=== PATIENT | female | born 1940 | race Caucasian/White ===

== ENCOUNTER 2016-05-10 12:36 | Emergency (ER) | payer OTHER ==
[2016-05-10 14:07] VITALS: BP 162/76
--- NOTE | 2016-05-10 15:08 | UC ---
Delfina Tang Rebecca, scribed for Belem Alberto MD on 05/10/16 at 1413 . Head Injury HPI - HPI Summary HPI Summary: Pt is a 75 y/o F who presents to [facility] c/o pain s/p head trauma and fall. Pt was walking into [facility] this am approx 10:50am when the doors closed on her and she fell backwards. Pt reports hitting the back of her head on the ground. Pain is discrete to the region that hit the ground. Sx began immediately and is currently mild, ranked 2/10 and characterized as dull. Additionally c/o mild neck stiffness. Denies LOC, confusion. reports being incapable of reporting her phone number immediately after episode. Pt takes 81 mg ASA, Zoloft and Lipitor every day. PMHx: anxiety, dyslipidemia PSHx bilateral hip replacements. PCP is Dr. Pratibha Lopez. Prior head and neck injuries/falls due to equitation. Pt brought a note from [facility], copied in her chart, timed 10:50 that describes the incident, states patient was "dizzy, shook up, stiff neck" Entired note reviewed prior to patient's departure. Triage nurse states that the note and pt 's history of fall was not presented prior to full triage. - History Of Current Complaint Chief Complaint: UCHeadInjury Stated Complaint: HEAD INJURY Time Seen by Provider: 05/10/16 14:00 Hx Obtained From: Patient, Family/Plumber - Onset/Duration: Sudden Onset, Lasting Hours, Still Present Severity Currently: None Severity Initially: Mild Pain Intensity: 2 Pain Scale Used: 0-10 Numeric Character: Dull Aggravating Factor(s): Nothing Alleviating Factor(s): Nothing Associated Signs And Symptoms: Positive: Memory Loss - pt denies, but states [facility] personnel reported that pt couldn't recite her phone number after the fall. Pt denies this, states "they didn't ask me for this"., Neck Pain - stiffness. Negative: LOC (Time In Secs./Mins/Hrs), LOC Duration Unknown, Confusion, Nausea, Vomiting Anticoagulant Therapy: ASA - 81 mg daily - Risk Factors SDH Risk Factor: Anticoagulent Use - ASA, Elderly Risk Factors For Cervical Spine Injury: Posterior Midline Cervical Spine Tenderness - Allergies/Home Medications Allergies/Adverse Reactions: Allergies Allergy/AdvReac Type Severity Reaction Status Date / Time Penicillins Allergy Unknown Unknown Verified 05/10/16 13:52 Reaction Details Home Medications: Home Medications Aspirin [Aspirin Adult Low Dose] 05/10/16 [History] Atorvastatin* [Lipitor 10 MG*] 05/10/16 [History] Ibuprofen TAB* [Advil TAB*] 05/10/16 [History] NK [No Home Medications Reported] 05/10/16 [History Confirmed 05/10/16] Sertraline* [Zoloft*] 1 tab PO DAILY 05/10/16 [History Confirmed 05/10/16] PMH/Surg Hx/FS Hx/Imm Hx Endocrine History Of: Reports: Dyslipidemia GI/ History Of: Denies: Ulcer Psychological History Of: Reports: Anxiety Cancer History Of: Denies: Breast Cancer - Surgical History Surgical History: Yes Surgery Procedure, Year, and Place: BILATERAL HIP REPLACEMENT - Family History Known Family History: Positive: Other - tongue CA (mother), brain tumor (father) - Social History Lives: With Family Alcohol Use: Daily Substance Use Type: None Smoking Status (MU): Never Smoked Tobacco Review of Systems Musculoskeletal: Arthralgia - Mild neck stiffness Neurological: Headache - s/p fall, Other - Denies LOC, confusion All Other Systems Reviewed And Are Negative: Yes Physical Exam Triage Information Reviewed: Yes Appearance: No Pain Distress, Well-Nourished, Ill-Appearing - mild, Signs of Trauma - Palpable 2cm hematoma post occiput, abrasion Vital Signs: Initial Vital Signs Temp 98.8 F 05/10/16 13:54 Pulse 72 05/10/16 13:54 Resp 16 05/10/16 13:54 BP 162/76 05/10/16 13:54 Pulse Ox 99 05/10/16 13:54 Vital Signs Reviewed: Yes Eyes: Positive: Conjunctiva Clear, Other: - PERRL EOMI ENT: Positive: TMs normal - No hemotympanum, Other: - No Scherer's sign Neck: Positive: Tenderness @ - Posterior midline Respiratory: Positive: No respiratory distress Musculoskeletal: Positive: Other: - Moving all extremities in a grossly normal manner Neurological: Positive: Alert, Muscle Tone Normal Psychological: Positive: Normal Response To Family Skin: Positive: Other - abrasion, 2cm hematoma post occiput Head Injury Course/Dx - Course Course Of Treatment: Discussed injury with pt and her and recommendation for [place] collar and neck xray, and recommendation for further evaluation in the ED for probable CTbrain due to palpable hematoma, ASA use, and pt's age. Pt refused [place] collar and xray, and refused transfer to the ED. Pt expressed desire to leave and not be transferred to ED. Pt repeatedly requests to have her eyes looked at to r/o concussion as "that is what Dr. 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 Expresses frustration that she told her story and waited 2 hours and that she wishes she had been sent to the ED earlier. Expressed concern over the possibility of fx. Pt states she is hungry and just wants to leave. Pt states that she would like to leave AMA. Signed out AMA with present for all discussions. - Differential Dx/Diagnosis Differential Diagnosis/HQI/PQRI: Cerebral Contusion, Cervical Sprain, Concussion Without LOC, Contusion, Hematoma, Intracranial Bleed, Skull Fracture , Other - SDH Provider Diagnoses: AMA Discharge - Discharge Plan Condition: Guarded Disposition: AGAINST MEDICAL ADVICE Referrals: Pratibha Lopez MD [Primary Care Provider] - The documentation as recorded by the Delfina molina Rebecca accurately reflects the service I personally performed and the decisions made by me, Belem Alberto MD.
== END 2016-05-10 14:14 | disposition left against medical advice (07) ==
LOC: UCEAST 12:36
DX: S09.90XA Unspecified injury of head, initial encounter (principal); S00.03XA Contusion of scalp, initial encounter; S00.01XA Abrasion of scalp, initial encounter; W19.XXXA Unspecified fall, initial encounter; Y93.89 Activity, other specified; Y92.512 Supermarket, store or market as the place of occurrence of the external cause; M54.2 Cervicalgia; Z79.82 Long term (current) use of aspirin; Z88.0 Allergy status to penicillin; Z96.643 Presence of artificial hip joint, bilateral
CPT/HCPCS: 99212; G0463